=== PATIENT | male | born 1980 | race Caucasian/White ===

== ENCOUNTER 2018-02-14 09:03 | Emergency (ER) | payer MEDICAID ==
[~2018-02-14] VITALS: Ht 182.9 cm; Wt 72.7 kg
[~2018-02-14 09:03] MED LIST: IBUP-1986 PO
[2018-02-14] MEDS ORDERED: amox tr/potassium clavulanate 875/125mg TAB PO ONE (09:15)
[2018-02-14] MEDS ORDERED: AMOX-422 PO (09:16)
[2018-02-14 09:26] VITALS: BP 132/68
== END 2018-02-14 09:31 | disposition home or self-care (01) ==
LOC: ER 09:03
DX: K02.9 Dental caries, unspecified (principal); K04.7 Periapical abscess without sinus; Z79.899 Other long term (current) drug therapy
CPT/HCPCS: 99283

== ENCOUNTER 2020-04-26 10:55 | Emergency (ER) | payer MEDICAID ==
[~2020-04-26] VITALS: Ht 172.7 cm; Wt 80.0 kg
[2020-04-26 10:56] VITALS: BP 119/92
[2020-04-26] MEDS ORDERED: NO HOME MEDS (11:06)
[2020-04-26] MEDS ORDERED: PENI500T2 PO (11:18)
== END 2020-04-26 11:32 | disposition home or self-care (01) ==
LOC: ER 10:55
DX: K05.10 Chronic gingivitis, plaque induced (principal); Z72.89 Other problems related to lifestyle; Z79.899 Other long term (current) drug therapy
CPT/HCPCS: 99283

== ENCOUNTER 2020-10-31 23:20 | Emergency (ER) | payer MEDICAID ==
[~2020-10-31] VITALS: Ht 182.9 cm; Wt 79.5 kg
[~2020-10-31 23:20] MED LIST changes: -IBUP-1986 PO; +NO HOME MEDS
[2020-10-31] MEDS ORDERED: ondansetron/PF 4mg/2ml inj IV ONE (23:30)
[2020-10-31] MEDS ORDERED: LORazepam 2 mg/ml vial IV ONE (23:30)
[2020-10-31] MEDS ORDERED: pantoprazole 40 MG vial IV ONE (23:30)
[2020-10-31] MEDS ORDERED: normal saline 1000ML IV soln IVB ONE (23:30)
[2020-10-31 23:42] LABS: BASOPHILS % (AUTO) 0.5 % (0-1); EOSINOPHILS # (AUTO) 0.1 X10'3 (0-0.9); EOSINOPHILS % (AUTO) 1.2 % (0-6); HEMATOCRIT 40.4 % (42.0-52.0); HEMOGLOBIN 13.8 g/dl (14.0-17.9); LYMPHOCYTES % (AUTO) 18.7 % (21-51); MEAN CORPUSCULAR HEMOGLOBIN 34.2 PG (27.0-31.0); MEAN CORPUSCULAR HGB CONC 34.2 g/dL (33.0-36.5); MEAN PLATELET VOLUME 7.5 FL (7.4-10.4); MONOCYTES # (AUTO) 0.5 X10'3 (0-0.9); MONOCYTES % (AUTO) 8.2 % (2-12); NEUTROPHILS % (AUTO) 71.4 % (42-75); PLATELET COUNT 213 X10'3 (140-440); RED BLOOD COUNT 4.04 X10'6 (4.70-6.10); RED CELL DISTRIBUTION WIDTH 13.5 % (11.5-14.5); WHITE BLOOD COUNT 5.6 X10'3 (4.5-11.0)
[2020-10-31 23:56] LABS: PARTIAL THROMBOPLASTIN TIME 28 SECONDS (22-32)
[2020-11-01 00:18] LABS: ALANINE AMINOTRANSFERASE 29 U/L (12-78); ALBUMIN 3.7 G/DL (3.4-5.0); ALBUMIN/GLOBULIN RATIO 1.2 (1.1-1.5); ALKALINE PHOSPHATASE 95 IU/L (46-116); ANION GAP 13 (8-16); ASPARTATE AMINO TRANSFERASE 41 U/L (10-37); BILIRUBIN,TOTAL 0.9 MG/DL (0.1-1.0); BLOOD UREA NITROGEN 8 MG/DL (7-18); BUN/CREATININE RATIO 11.8 (5.4-32.0); CHLORIDE 99 MMOL/L (99-107); CREATININE 0.68 MG/DL (0.60-1.10); ETHANOL < 0.010 GM/DL (0.0-0.010); GLUCOSE 100 MG/DL (70-104); LIPASE 130 U/L (73-393); MAGNESIUM 1.4 MG/DL (1.5-2.4); POTASSIUM 3.2 MMOL/L (3.5-5.1); SODIUM 137 MMOL/L (135-145); TOTAL CARBON DIOXIDE 25.1 MMOL/L (24-32); TOTAL PROTEIN 6.9 G/DL (6.4-8.2); eGFR > 90 ML/MIN
[2020-11-01] MEDS ORDERED: magnesium oxide 400mg tablet PO ONE (00:40)
[2020-11-01] MEDS ORDERED: chlordiazePOXIDE 25mg capsule PO ONE (00:40)
[2020-11-01] MEDS ORDERED: potassium Cl 20 mEq SR tablet PO ONE (00:40)
[2020-11-01] MEDS ORDERED: CHLO25CA10 PO (00:42)
[2020-11-01] MEDS ORDERED: MAGN400C PO (00:42)
[2020-11-01] MEDS ORDERED: POTA10TA19 PO (00:42)
[2020-11-01 00:56] VITALS: BP 123/91
== END 2020-11-01 00:53 | disposition home or self-care (01) ==
LOC: ER 23:20
DX: F10.239 Alcohol dependence with withdrawal, unspecified (principal); R07.89 Other chest pain; D53.9 Nutritional anemia, unspecified; R06.02 Shortness of breath; Z72.89 Other problems related to lifestyle; Z79.899 Other long term (current) drug therapy; Y90.0 Blood alcohol level of less than 20 mg/100 ml
CPT/HCPCS: 36415; 71045; 80053; 80320; 83690; 83735; 84484; 85025; 85610; 85730; 93005; 96374; 96375; 99285; C9113; J2060; J2405; J7030; 96361

== ENCOUNTER 2020-11-02 20:07 | Emergency (ER) | payer MEDICAID ==
[~2020-11-02] VITALS: Ht 182.9 cm; Wt 63.2 kg
[~2020-11-02 20:07] MED LIST changes: +CHLO25CA10 PO; +MAGN400C PO; +POTA10TA19 PO
[2020-11-02 21:15] LABS: BASOPHILS % (AUTO) 0.7 % (0-1); EOSINOPHILS # (AUTO) 0.2 X10'3 (0-0.9); EOSINOPHILS % (AUTO) 2.6 % (0-6); HEMATOCRIT 41.1 % (42.0-52.0); HEMOGLOBIN 13.9 g/dl (14.0-17.9); LYMPHOCYTES # (AUTO) 1.3 X10'3 (1.1-4.8); LYMPHOCYTES % (AUTO) 20.2 % (21-51); MEAN CORPUSCULAR HEMOGLOBIN 33.9 PG (27.0-31.0); MEAN CORPUSCULAR HGB CONC 33.9 g/dL (33.0-36.5); MEAN CORPUSCULAR VOLUME 100.2 FL (78-98); MONOCYTES # (AUTO) 0.5 X10'3 (0-0.9); MONOCYTES % (AUTO) 7.5 % (2-12); NEUTROPHILS # (AUTO) 4.4 X10'3 (1.8-7.7); PLATELET COUNT 200 X10'3 (140-440); RED CELL DISTRIBUTION WIDTH 13.9 % (11.5-14.5); WHITE BLOOD COUNT 6.4 X10'3 (4.5-11.0)
[2020-11-02 21:20] LABS: ALANINE AMINOTRANSFERASE 26 U/L (12-78); ALBUMIN 3.9 G/DL (3.4-5.0); ALBUMIN/GLOBULIN RATIO 1.1 (1.1-1.5); ALKALINE PHOSPHATASE 101 IU/L (46-116); ANION GAP 13 (8-16); ASPARTATE AMINO TRANSFERASE 32 U/L (10-37); BILIRUBIN,TOTAL 0.5 MG/DL (0.1-1.0); BLOOD UREA NITROGEN 8 MG/DL (7-18); BUN/CREATININE RATIO 10.5 (5.4-32.0); CALCIUM 9.1 MG/DL (8.5-10.1); CHLORIDE 103 MMOL/L (99-107); CREATININE 0.76 MG/DL (0.60-1.10); GLUCOSE 121 MG/DL (70-104); LIPASE 206 U/L (73-393); POTASSIUM 3.2 MMOL/L (3.5-5.1); SODIUM 141 MMOL/L (135-145); TOTAL CARBON DIOXIDE 25.4 MMOL/L (24-32); TOTAL PROTEIN 7.3 G/DL (6.4-8.2); eGFR > 90 ML/MIN
[2020-11-02 21:44] LABS: CLARITY,URINE CLEAR (Clear); COLOR,URINE YELLOW (Yellow); GLUCOSE, URINE NEGATIVE (Neg); KETONES,URINE NEGATIVE (Neg); LEUKOCYTE ESTERASE ,URINE NEGATIVE (Neg); NITRITES, URINE NEGATIVE (Neg); OCCULT BLOOD,URINE TRACE-INTACT (Neg); PROTEIN,URINE NEGATIVE (Neg); UA COLLECTION TYPE URINAL; UROBILINOGEN,URINE 0.2 E.U/dL (0.2-1.0)
[2020-11-02 21:52] LABS: BACTERIA,URINE NONE SEEN /HPF (Neg); RBC,URINE 0-2 /HPF (0-2); WBC,URINE NONE SEEN /HPF (0-4)
[2020-11-02 21:53] LABS: SQUAMOUS EPITHELIAL CELL,UR NONE SEEN /LPF (FEW)
--- NOTE | 2020-11-02 22:30 | NUR ---
PT BECAME VERY AGGITATED ABOUT WANTING TO LEAVE AND NOT GETTING ANY TREATMENT. I TOLD PT THAT IF HE DIDNT WANT TO STAY HE COULD LEAVE BUT NEEDED TO SIGN AN AMA FORM. HE STOOD UP AND STARTED CURSING AT ME SO [employer]URE[employer] WAS CALLED. PT THEN WAS WALKING OUT AND DR. LIMON CAME AND TALKED TO HIM AND NOW PT IS BACK IN HIS ROOM.
[2020-11-02] MEDS ORDERED: magnesium oxide 400mg tablet PO ONE (22:35)
[2020-11-02] MEDS ORDERED: potassium Cl 20 mEq SR tablet PO ONE (22:35)
[2020-11-02] MEDS ORDERED: chlordiazePOXIDE 25mg capsule PO ONE (22:35)
[2020-11-02 23:03] VITALS: BP 114/80
== END 2020-11-02 22:52 | disposition home or self-care (01) ==
LOC: ER 20:07
DX: F10.239 Alcohol dependence with withdrawal, unspecified (principal); R07.89 Other chest pain; R56.9 Unspecified convulsions; Z72.89 Other problems related to lifestyle; Z79.899 Other long term (current) drug therapy; Y90.9 Presence of alcohol in blood, level not specified
CPT/HCPCS: 36415; 80053; 81001; 83690; 85025; 99284

== ENCOUNTER 2020-11-03 11:26 | Emergency (ER) | payer MEDICAID ==
[~2020-11-03] VITALS: Ht 182.9 cm; Wt 70.5 kg
[2020-11-03 16:19] VITALS: BP 117/90
== END 2020-11-03 16:20 | disposition home or self-care (01) ==
LOC: ER 11:26
DX: Z00.00 Encounter for general adult medical examination without abnormal findings (principal); Z72.89 Other problems related to lifestyle; Z79.899 Other long term (current) drug therapy
CPT/HCPCS: 99281

== ENCOUNTER 2020-12-05 13:33 | Emergency (ER) | payer MEDICAID ==
[~2020-12-05] VITALS: Ht 182.9 cm; Wt 72.7 kg
[~2020-12-05 13:33] MED LIST changes: -POTA10TA19 PO
[2020-12-05 13:44] VITALS: BP 114/76
[2020-12-05 14:59] LABS: BASOPHILS # (AUTO) 0.1 X10'3 (0-0.2); EOSINOPHILS # (AUTO) 0.4 X10'3 (0-0.9); EOSINOPHILS % (AUTO) 5.8 % (0-6); HEMATOCRIT 42.9 % (42.0-52.0); HEMOGLOBIN 14.6 g/dl (14.0-17.9); LYMPHOCYTES # (AUTO) 1.9 X10'3 (1.1-4.8); LYMPHOCYTES % (AUTO) 26.5 % (21-51); MEAN CORPUSCULAR HEMOGLOBIN 32.9 PG (27.0-31.0); MEAN CORPUSCULAR HGB CONC 34.1 g/dL (33.0-36.5); MEAN CORPUSCULAR VOLUME 96.5 FL (78-98); MEAN PLATELET VOLUME 7.8 FL (7.4-10.4); MONOCYTES # (AUTO) 0.8 X10'3 (0-0.9); MONOCYTES % (AUTO) 11.5 % (2-12); NEUTROPHILS # (AUTO) 3.9 X10'3 (1.8-7.7); NEUTROPHILS % (AUTO) 55.2 % (42-75); PLATELET COUNT 307 X10'3 (140-440); RED BLOOD COUNT 4.45 X10'6 (4.70-6.10)
[2020-12-05 15:12] LABS: ALANINE AMINOTRANSFERASE 18 U/L (12-78); ALBUMIN 3.7 G/DL (3.4-5.0); ALKALINE PHOSPHATASE 75 IU/L (46-116); ANION GAP 9 (8-16); ASPARTATE AMINO TRANSFERASE 22 U/L (10-37); BILIRUBIN,TOTAL 0.2 MG/DL (0.1-1.0); BLOOD UREA NITROGEN 11 MG/DL (7-18); BUN/CREATININE RATIO 13.1 (5.4-32.0); CALCIUM 9.6 MG/DL (8.5-10.1); CHLORIDE 106 MMOL/L (99-107); CREATININE 0.84 MG/DL (0.60-1.10); GLUCOSE 107 MG/DL (70-104); MAGNESIUM 1.9 MG/DL (1.5-2.4); POTASSIUM 4.7 MMOL/L (3.5-5.1); SODIUM 143 MMOL/L (135-145); TOTAL CARBON DIOXIDE 27.7 MMOL/L (24-32); TOTAL PROTEIN 7.3 G/DL (6.4-8.2); eGFR > 90 ML/MIN
--- NOTE | 2020-12-05 15:30 | NUR ---
ATTEMPT EKG BUT PATIENT NOT IN LOBBY AT THIS TIME
--- NOTE | 2020-12-05 16:23 | NUR ---
ATTEMPT EKG BUT PATIENT NOT IN LOBBY
== END 2020-12-05 18:06 | disposition left against medical advice (07) ==
LOC: ER 13:33
DX: R00.2 Palpitations (principal); F17.210 Nicotine dependence, cigarettes, uncomplicated; Z72.89 Other problems related to lifestyle; Z79.899 Other long term (current) drug therapy
CPT/HCPCS: 36415; 80053; 83735; 84484; 85025; 99283